=== PATIENT | female | born 1970 | race Caucasian/White ===

== ENCOUNTER 2021-09-12 15:18 | Emergency (ER) | payer BC, SELFPAY ==
--- NOTE | 2021-09-12 16:01 | HMH.EDUTC ---
[facility] [place] Clinical Impression: Pharyngitis Qualifiers: Pharyngitis/tonsillitis etiology: unspecified etiology Qualified Code(s): J02.9 - Acute pharyngitis, unspecified Disposition: Home, Self-Care Condition on Discharge: Good Instructions: Sore Throat, DI for Pharyngitis/Tonsillopharyngitis -- Adult Additional Instructions: Drink plenty of fluids. Take tylenol or ibuprofen for pain or fever. Take the medications as directed. Follow up with your regular doctor. GO TO THE ER FOR ANY WORSENING SYMPTOMS Quarantine until you know the results of your covid-19 test. Notify your school or workplace of your results and follow their instructions regarding return to work/school. Don't start the oral steroids until tomorrow, since you had the shot here today. Prescriptions: methylPREDNISolone [Medrol] 4 mg PO DIRECTED 6 Days #21 packet Transmission Status: Received by [id number] Cefdinir [Omnicef 300mg Capsule] 300 mg PO BID #20 cap Transmission Status: Received by [id number] Referrals: Zo Reilly MD [Primary Care Provider] - Time of Disposition: 16:57 Medical Decision Making - Medical Records Medical records reviewed: No: I reviewed the patient's medical records. - Noel Inquiry Pt receiving controlled substance: No Vital Signs: 09/12/21 16:07 09/12/21 17:04 Temperature 98.2 F 98.2 F Temperature Source Oral Pulse Rate 100 H Pulse Rate [Left] 100 H Respiratory Rate 18 18 Blood Pressure 148/72 H Blood Pressure [Right Arm] 148/72 H Blood Pressure Mean [Right Arm] 97 02 Sat by Pulse Oximetry 100 - Lab Data Lab results reviewed: Yes: I reviewed the patient's lab results. Lab Results 09/12/21 16:17: Strep Scn Rapid Clinic Negative Orders (Tests/Meds): ED MEDICATIONS Discontinued Medications Generic Name Dose Route Start Last Admin Trade Name Freq PRN Reason Stop Dose Admin Ceftriaxone Sodium 1 gm 09/12/21 16:39 09/12/21 16:50 Ceftriaxone 1gm Vial IM 09/12/21 16:40 1 gm ONCE ONE Administration Dexamethasone Sodium Phosphate 4 mg 09/12/21 16:41 Dexamethasone 4mg/Ml 1ml Vial IM 09/12/21 16:42 ONCE ONE Dexamethasone Sodium Phosphate 8 mg 09/12/21 16:49 09/12/21 16:51 Dexamethasone 4mg/Ml 1ml Vial IM 09/12/21 16:50 8 mg ONCE ONE Administration Lidocaine HCl 0 ml 09/12/21 16:39 09/12/21 16:50 Lidocaine 1% 5ml Pf Vial IM 09/12/21 16:40 2 ml ONCE ONE Administration Methylprednisolone Sodium Succinate 125 mg 09/12/21 16:39 Methylprednisolone Sod Succ 125mg Vial IM 09/12/21 16:40 ONCE ONE ORDERS Category Date Time Status Strep Screen Confirmation Stat Micro 09/12/21 16:17 Received [facility] [place] - General Stated complaint: throat and ear pain Time Seen by Provider: 09/12/21 16:01 - History of Present Illness Provider Complaint: She states that for the past 2 days she has had a sore throat and right ear pain. She denies significant cough or congestion. She has had her tonsils removed in the past for frequent strep. - Related Data Previous Rx's Medication Instructions Recorded Cefdinir [Omnicef 300mg Capsule] 300 mg PO BID #20 cap 09/12/21 methylPREDNISolone [Medrol] 4 mg PO DIRECTED 6 Days #21 09/12/21 packet Allergies Allergy/AdvReac Type Severity Reaction Status Date / Time Penicillins Allergy Verified 09/12/21 16:18 Sulfa (Sulfonamide Allergy Verified 09/12/21 16:18 Antibiotics) [facility] History - Hepatitis A Screen Attestation statement:: This patient has been screened for Hepatitis A risk factors. I have reviewed the patient's past medical history: Yes ROS Obtained: Yes All systems reviewed & no additional complaints - Constitutional Constitutional: Reports as per HPI - Eyes Eyes: Denies eye discharge - ENT Ears, Nose, Mouth, and Throat: Reports as per HPI - Cardiovascular Cardiovascular: Denies chest pain
[2021-09-12 16:07] VITALS: BP 148/72; PULSE 100; RESP 18; TEMP 36.8; O2SAT 100; BMI 30.2
[2021-09-12 16:18] LABS: UTC Strep Screen (Rapid) Negative (Negative)
[2021-09-12 17:04] VITALS: BP 148/72; PULSE 100; RESP 18; TEMP 36.8
== END 2021-09-12 17:17 | disposition home or self-care (01) ==
PROVIDERS: Emergency Provider Nurse Practitioner Family; PCP Family Medicine
DX: J02.9 Acute pharyngitis, unspecified (principal)
CPT/HCPCS: 87880; 96372; 99202; G0463; J0696

== ENCOUNTER 2023-02-07 10:40 | Emergency (ER) | payer BC, SELFPAY ==
[2023-02-07] VITALS (9 sets, daily range): BP systolic 125–142; BP diastolic 72–97; PULSE 66–94; RESP 16–22; TEMP 36.6–36.7; O2SAT 98–100; BMI 29.8
--- NOTE | 2023-02-07 10:51 | PC.NURSE ---
KANIKA HOUGH at
--- NOTE | 2023-02-07 11:10 | MR_ITS ---
FINAL REPORT CLINICAL HISTORY: cauda equina syndrome rule out. BILATERAL LEG AND FEET TINGLING. LEG NUMBNESS AND PAIN. LOW BACK PAIN FINDINGS: Multiplanar MR imaging of the lumbar spine was performed without contrast. On the sagittal T2-weighted images, disc degeneration is seen at several levels. The vertebral alignment is normal. There is no evidence of fracture. No bony mass is identified. The conus is seen at approximately the L1 level and has an unremarkable appearance. T12-L1: There is no significant central canal stenosis or neural foraminal narrowing. L1-2: There is no significant canal stenosis or neural foraminal narrowing. L2-3: There is an annular disc bulge without significant canal stenosis or neural foraminal narrowing. L3-4: There is an annular disc bulge without significant canal stenosis or neural foraminal narrowing. L4-5: Annular disc bulge and small central disc protrusion with mild right neural foraminal narrowing. L5-S1: Annular disc bulge with left paracentral disc protrusion and left S1 nerve root impingement. There is moderate right and mild left neural foraminal narrowing. A synovial cyst is seen posterior to the facet joint on the right measuring 10 mm. IMPRESSION: Multilevel degenerative disc disease with left paracentral disc protrusion at L5-S1 resulting in left S1 nerve root impingement and moderate right and mild left neural foraminal narrowing. Synovial cyst posterior to the right facet joint at L5-S1 measuring 10 mm. Reviewed, Interpreted and Dictated by Dameon Aiken III, MD Transcribed by Melissa Wilson Authenticated and [facility]
--- NOTE | 2023-02-07 11:10 | PC.NURSE ---
rounded on patient, pt sitting in room talking with significant other.
--- NOTE | 2023-02-07 11:20 | PC.NURSE ---
care management approved MRI, contacted MRI staff stated would be approx 1 hour prior to being able to take pt for scan
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
[2023-02-07 12:00] LABS: Chloride 103 mmol/L (98-107); Potassium 3.8 mmoL/L (3.5-5.1); Sodium 142 mmol/L (136-145)
[2023-02-07 12:03] LABS: Alanine Aminotransferase 41 U/L (12-78); Albumin Level 4.9 g/dl (3.5-5.0); Albumin/Globulin Ratio 1.5 (1.1-1.8); Alkaline Phosphatase 76 U/L (38-126); Anion Gap 17.8 mEq/L (5-15); Aspartate Amino Transferase 42 U/L (14-36); Bilirubin,Total 0.3 mg/dl (0.2-1.3); Blood Urea Nitrogen 11 mg/dl (7-17); Calcium 9.7 mg/dl (8.4-10.2); Carbon Dioxide 25 mmol/L (22.0-30.0); Creatinine Clearance Estimated 109 mL/min (50-200); Estimated Glomerular Filt Rate 75 ml/min (>60); GFR (African American) 91 ML/MIN (>60); Globulin 3.2 g/dL (1.3-3.2); Glucose 90 mg/dl (74-100); Total Protein,Serum 8.1 g/dl (6.3-8.2)
--- NOTE | 2023-02-07 12:05 | PC.NURSE ---
pt updated on POC and that MRI is on the way.
[2023-02-07 12:14] LABS: Basophils # 0.1 K/mm3 (0-0.2); Basophils % 0.9 % (0.1-2.0); Eosinophils # 0.1 K/mm3 (0.0-0.4); Hematocrit 47.9 % (37.0-47.0); Hemoglobin 15.3 g/dL (12.2-16.2); Lymphocytes # 3.6 K/mm3 (0.7-4.5); Lymphocytes % 49.9 % (10-50); Mean Corpuscular HGB Conc 31.9 g/dL (31.8-35.4); Mean Corpuscular Hemoglobin 28.8 pg (27.0-31.2); Mean Corpuscular Volume 90.3 fl (81-99); Monocytes # 0.4 K/mm3 (0.1-1.0); Monocytes % 5.4 % (1.7-9.3); Neutrophils # 3.1 K/mm3 (1.8-7.8); Neutrophils % 42.8 % (37.0-80.0); Platelet Count 490 K/mm3 (142-424); Red Blood Count 5.31 M/mm3 (4.20-5.40); White Blood Count 7.1 K/mm3 (4.8-10.8)
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
[2023-02-07 12:22] LABS: HCG Qualitative, Serum Negative (Negative)
--- NOTE | 2023-02-07 13:07 | PC.NURSE ---
pt return from MRI
--- NOTE | 2023-02-07 14:17 | PC.NURSE ---
rounded on pt, pt states no needs at this time. family at BS, call caballero in reach
--- NOTE | 2023-02-07 14:28 | PC.NURSE ---
contacted rad to check on status of MRI results- states preliminary result available states will send it down
--- NOTE | 2023-02-07 15:12 | PC.NURSE ---
faxed face sheet and dr note for referral with [facility]
== END 2023-02-07 15:12 | disposition home or self-care (01) ==
PROVIDERS: Emergency Provider Emergency Medicine
DX: M51.27 Other intervertebral disc displacement, lumbosacral region (principal); R10.30 Lower abdominal pain, unspecified; M54.42 Lumbago with sciatica, left side
CPT/HCPCS: 72148; 76376; 80053; 84703; 85025; 96361; 96374; 96375; 99285

== ENCOUNTER 2025-07-26 09:58 | Emergency (ER) | payer OTHER, SELFPAY ==
[2025-07-26] VITALS (20 sets, daily range): BP systolic 139–178; BP diastolic 81–124; PULSE 64–85; RESP 18; TEMP 36.8–36.9; O2SAT 97–99; BMI 29.7
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
--- NOTE | 2025-07-26 10:37 | ECG_ITS ---
APPROVED REPORT Exam: Resting ECG HR:81 bpm ECG Measurements Heart Rate 81 AXES KS 130 P 63 QRSd 86 QRS 60 QT 372 T 61 QTc 409 Conclusion Normal sinus rhythm no ST elevation ST depression or T wave inversions concerning for ischemia Electronically signed by : Radha Harvey, 07/26/2025 14:47:57
[2025-07-26] MEDS: MORPHINE 4MG/ML SYRINGE 4 MG IV ×2 (10:38→12:35)
--- NOTE | 2025-07-26 10:45 | PC.NURSE ---
1029 c-collar applied. pt changed into gown. Clothes removed (long sleeve shirt, scrub pants, scrub jacket, bra, boots), jewelry removed (2 rings, 6 earrings, 9 beaded bracelets, apple watch) placed into specimen cup labeled with patient sticker and placed into patients purse.
[2025-07-26 11:01] LABS: Hematocrit 45.8 % (37.0-47.0); Hemoglobin 15.4 g/dL (12.2-16.2); Immature Granulocytes % 0.2 %; Mean Corpuscular HGB Conc 33.6 g/dL (31.8-35.4); Mean Corpuscular Hemoglobin 30.5 pg (27.0-31.2); Mean Corpuscular Volume 90.7 fl (81-99); Nucleated Red Blood Cells % 0 %; Platelet Count 414 K/mm3 (142-424); Red Blood Count 5.05 M/mm3 (4.20-5.40); Red Cell Distribution Width-SD 43.4 fL; White Blood Count 8.4 K/mm3 (4.8-10.8)
[2025-07-26 11:07] LABS: Albumin Level 5.2 g/dl (3.5-5.0); Chloride 103 mmol/L (98-107)
[2025-07-26 11:08] LABS: Potassium 3.9 mmoL/L (3.5-5.1); Sodium 145 mmol/L (136-145)
[2025-07-26 11:10] LABS: Alanine Aminotransferase 35 U/L (12-78); Anion Gap 17.9 mEq/L (5-15); Aspartate Amino Transferase 37 U/L (14-36); Bilirubin,Total 0.5 mg/dl (0.2-1.3); Blood Urea Nitrogen 17 mg/dl (7-17); Carbon Dioxide 28 mmol/L (22.0-30.0); Creatinine Clearance Estimated 91 mL/min (50-200); Creatinine,Serum 0.90 mg/dl (0.52-1.04); Estimated Glomerular Filt Rate 65 ml/min (>60); GFR (African American) 79 ML/MIN (>60)
[2025-07-26 11:11] LABS: Albumin/Globulin Ratio 1.6 (1.1-1.8); Alkaline Phosphatase 89 U/L (38-126); Calcium 9.4 mg/dl (8.4-10.2); Globulin 3.2 g/dL (1.3-3.2); Glucose 104 mg/dl (74-100); Total Protein,Serum 8.4 g/dl (6.3-8.2)
[2025-07-26 11:13] LABS: Activated Partial Thrombo Time 26.2 seconds (22.8-30.6); INR 0.99 (0.9-1.1); Prothrombin Time 11.0 seconds (10.1-12.5)
[2025-07-26 11:15] LABS: HCG Qualitative, Serum Negative (Negative)
[2025-07-26 11:28] LABS: Troponin I < 0.01 ng/ml (0.00-0.034)
[2025-07-26] MEDS: 0.9 % SODIUM CHLORIDE 50 ML VIAL 100 ML IV (12:06)
[2025-07-26] MEDS: SODIUM CHLORIDE 0.9% 10ML SYR (RAD ONLY) 10 ML IV (12:07)
[2025-07-26] MEDS: IOPAMIDOL-370 (76%);100ML BOTTLE 160 ML IV (12:07)
[2025-07-26] MEDS: ACETAMINOPHEN 1,000MG/100ML VIAL 1000 MG IV (12:38)
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
--- NOTE | 2025-07-26 13:48 | PC.NURSE ---
Dr. Prado is on the phone with now.
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
[2025-07-26] MEDS: OXYCODONE 5MG IMMEDIATE RELEASE TABLET 5 MG PO (14:17)
[2025-07-26] MEDS: KETOROLAC 15MG/ML VIAL 15 MG IV (14:17)
[2025-07-26] MEDS: METHOCARBAMOL 500MG TABLET 1500 MG PO (14:25)
== END 2025-07-26 15:04 | disposition other institution (70) ==
PROVIDERS: Emergency Provider Student in an Organized Health Care Education/Training Program; PCP Family Medicine
DX: M48.02 Spinal stenosis, cervical region (principal); M50.221 Other cervical disc displacement at C4-C5 level; M50.222 Other cervical disc displacement at C5-C6 level; R07.89 Other chest pain; R20.2 Paresthesia of skin; R51.9 Headache, unspecified; V47.5XXA Car driver injured in collision with fixed or stationary object in traffic accident, initial encounter
CPT/HCPCS: 70450; 70496; 70498; 71045; 71275; 72125; 72128; 72131; 72141; 72170; 74174; 80053; 84484; 84703; 85025; 85610; 85730; 93005; 96374; 96375; 96376; 99285; J0131; J1885; J2270; Q9967